=== PATIENT | male | born 1970 | race Caucasian/White ===

== ENCOUNTER → 2016-06-25 | Outpatient (CLI) | payer BC ==
--- NOTE | 2016-06-25 09:43 | DI ---
MRI LOW EXTREMITY JNT W/O CN,06/25/2016 7:49 AM: Clinical History: Left lower extremity pain. Previous Exam: None at this facility. Findings: Multiplanar MR images are obtained through the left knee without contrast. Bones: Bony alignment is anatomic. No fractures are seen. Marrow signal is preserved. The articular cartilage is preserved. The anterior and posterior cruciate ligaments are intact. The lateral meniscus is normal. The medial meniscus is also normal. The medial and lateral collateral ligaments are intact. The popliteus tendon is also intact. The major vascular flow voids are unremarkable in signal within the musculature is unremarkable. Ther e is a trace amount of fluid within the knee joint. There is a superficial osteochondral defect invol ving the lateral patellar facet. The quadriceps and patellar tendons are intact. There is no evidence of Nelson's cyst. Impression: Mild grade 1 osteochondral defect involving the left lateral patellar facet. Small left knee joint effusion.
== END ==
LOC: MRI 07:43
PROVIDERS: ATTEND Family Medicine
DX: M25.562 Pain in left knee (principal); M25.462 Effusion, left knee
CPT/HCPCS: 73721